=== PATIENT | male | born 1955 | race Caucasian/White ===

== ENCOUNTER 2018-11-04 00:41 | Emergency (ER) | payer MEDICAID ==
[~2018-11-04] VITALS: Ht 165.1 cm; Wt 80.7 kg
[2018-11-04] MEDS ORDERED: ONDANSETRON 4MG ODT PO ONE (04:00)
[2018-11-04 04:55] VITALS: BP 158/84
== END 2018-11-04 05:14 | disposition home or self-care (01) ==
LOC: ER 00:41
DX: T60.91XA Toxic effect of unspecified pesticide, accidental (unintentional), initial encounter (principal); I10 Essential (primary) hypertension; Y92.018 Other place in single-family (private) house as the place of occurrence of the external cause
CPT/HCPCS: 99283; Q0162

== ENCOUNTER 2022-08-23 14:53 | Emergency (ER) | payer OTHER, MEDICAID ==
[~2022-08-23] VITALS: Ht 165.1 cm; Wt 82.0 kg
[2022-08-23] MEDS ORDERED: ASPIRIN 81MG TABLET PO ONE (16:00)
[2022-08-23 16:27] LABS: BASOPHILS % 0.7 % (0.0-2.0); HEMOGLOBIN. 13.2 g/dL (14.0-18.0); LYMPHOCYTES % 14.2 % (20.0-50.0); MEAN CORPUSCULAR HEMOGLOBIN 26.8 pg (28.0-32.0); MEAN CORPUSCULAR VOLUME 81.4 fL (80.0-94.0); NEUTROPHILS % 76.1 % (40.0-76.0); PLATELET 321 x1000/uL (130-400); RED BLOOD CELL COUNT 4.92 mill/uL (4.7-6.1)
[2022-08-23 16:38] LABS: CHLORIDE 113 mEq/L (98-107)
[2022-08-23 21:15] VITALS: BP 137/72
== END 2022-08-23 21:29 | disposition short-term general hospital (02) ==
LOC: ER 14:53
DX: R07.89 Other chest pain (principal); I10 Essential (primary) hypertension; E78.00 Pure hypercholesterolemia, unspecified; I25.2 Old myocardial infarction; Z98.61 Coronary angioplasty status; Z20.822 Contact with and (suspected) exposure to COVID-19
CPT/HCPCS: 36415; 71045; 80053; 84484; 85025; 93005; 99285